=== PATIENT | male | born 1940 | race Caucasian/White ===

== ENCOUNTER 2018-01-10 08:29 | Day surgery (SDC) | payer OTHER ==
[~2018-01-10] VITALS: Ht 185.4 cm; Wt 104.0 kg
[~2018-01-10 08:29] MED LIST: AMLODIPINE BESY10 MG PO; APRESOLINE50 MG PO; ASPIRIN81 M2 PO; ATORVASTATIN CA20 MG PO; COUMADIN4 MG PO; FLOMAX0.4 MG PO; GABAPENTIN300 MG PO; IMDUR30 MG PO; LASIX20 MG PO; MAG6464 M2 PO; METAMUCIL0.4 GM PO; METFORMIN HCL500 MG PO; METOPROLOL SUCC50 MG PO; MYSOLINE50 MG PO; NITROSTAT0.4 MG SL; PANTOPRAZOLE SO40 MG PO; PLAVIX75 MG PO; QUINAPRIL HCL40 MG PO
[2018-01-10 09:57] LABS: INTER. NORMALIZED RATIO 1.7
[2018-01-10 10:24] LABS: CHLORIDE 103 MEQ/L (99-109); CREATININE 1.5 MG/DL (0.6-1.3); GFR ESTIMATE (CALCULATED) 48 mL/min/ (58.99-99999); GLUCOSE 141 mg/dL (70-99); POTASSIUM 4.5 MEQ/L (3.7-5.4); SODIUM 137 MEQ/L (136-147); UREA NITROGEN (BUN) 19 mg/dL (9-23)
== END 2018-01-10 15:45 | disposition home or self-care (01) ==
LOC: CATH 08:29
PROVIDERS: Internal Medicine Cardiovascular Disease
DX: I25.10 Atherosclerotic heart disease of native coronary artery without angina pectoris (principal); I25.84 Coronary atherosclerosis due to calcified coronary lesion; T82.855A Stenosis of coronary artery stent, initial encounter; I73.9 Peripheral vascular disease, unspecified; Z95.820 Peripheral vascular angioplasty status with implants and grafts; I48.2 Chronic atrial fibrillation; Z79.01 Long term (current) use of anticoagulants; I12.9 Hypertensive chronic kidney disease with stage 1 through stage 4 chronic kidney disease, or unspecified chronic kidney disease; N18.9 Chronic kidney disease, unspecified; E11.51 Type 2 diabetes mellitus with diabetic peripheral angiopathy without gangrene; E78.00 Pure hypercholesterolemia, unspecified; I34.1 Nonrheumatic mitral (valve) prolapse; G47.30 Sleep apnea, unspecified; K21.9 Gastro-esophageal reflux disease without esophagitis; Z82.49 Family history of ischemic heart disease and other diseases of the circulatory system; Z87.891 Personal history of nicotine dependence; N40.1 Benign prostatic hyperplasia with lower urinary tract symptoms; R35.1 Nocturia; Z88.8 Allergy status to other drugs, medicaments and biological substances
CPT/HCPCS: 80048; 82948; 85610; C1769; C1887; J1644; J2250; J3010